=== PATIENT | male | born 1970 | race African-American/Black ===

== ENCOUNTER 2022-04-09 06:48 | Emergency (ER) | payer MEDICAID, OTHER ==
[~2022-04-09] VITALS: Ht 198.1 cm; Wt 84.3 kg
[2022-04-09 06:58] VITALS: BP 164/88
[2022-04-09] MEDS ORDERED: IBUP-2028 MT (10:52)
== END 2022-04-09 11:00 | disposition home or self-care (01) ==
LOC: ER 06:48
DX: S02.651A Fracture of angle of right mandible, initial encounter for closed fracture (principal); S02.66XA Fracture of symphysis of mandible, initial encounter for closed fracture; Y04.0XXA Assault by unarmed brawl or fight, initial encounter; Y93.89 Activity, other specified; Y92.89 Other specified places as the place of occurrence of the external cause; Y99.8 Other external cause status
CPT/HCPCS: 70486; 99284